=== PATIENT | female | born 1990 | race Caucasian/White ===

== ENCOUNTER 2016-12-19 08:51 | Outpatient (CLI) | payer MEDICAID | END 2016-12-19 08:52 | disposition EMS.NT | LOC: EMS 08:51 | PROVIDERS: ATTEND Surgery | DX: M25.512 Pain in left shoulder (principal); R07.81 Pleurodynia; M79.602 Pain in left arm; Y04.8XXA Assault by other bodily force, initial encounter ==

== ENCOUNTER 2017-01-22 01:55 | Emergency (ER) | payer SELFPAY ==
--- NOTE | 2017-01-22 02:21 | ED Physician Documentation ---
PD HPI ABD PAIN - Stated complaint Stated Complaint: ABDOMINAL PAIN - Chief complaint Chief Complaint: Abd Pain - History obtained from History obtained from: Patient - History of Present Illness Timing - onset: Enter time (22:30), Today Timing - details: Abrupt onset Pain level now: 9 Quality: Pain Location: LLQ Radiation: No: Chest, , Lower back, Left flank, Left shoulder, Right flank, Right shoulder, Upper back Improved by: Laying still Worsened by: Moving, Palpation Associated symptoms: Nausea, Vomiting. No: Fever Similar symptoms before: Has not had sx before Recently seen: Not recently seen - Additional information Additional information: patient complains of sudden onset of pelvic pain, predominantly left sided, immediately following intercourse. 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 - Present Medications Home Medications: Ambulatory Orders Medication Instructions Recorded Confirmed Ondansetron HCl [Zofran] 4 mg PO Q6HR PRN #14 tablet 01/22/17 oxyCODONE [Roxicodone] 5 mg PO Q6H PRN #14 tablet 01/22/17 - Allergies Allergies/Adverse Reactions: Allergies Allergy/AdvReac Type Severity Reaction Status Date / Time acetaminophen Allergy Edema Verified 03/31/16 19:00 - Social History Does the pt smoke?: Yes Smoking Status: Current every day smoker Does the pt drink ETOH?: Yes Does the pt have substance abuse?: No - Immunizations Immunizations are current?: Yes - POLST Patient has POLST: No PD ED PE NORMAL - Vitals Vital signs reviewed: Yes - General General: Alert and oriented X 3, No acute distress, Well developed/nourished - Cardiac Cardiac: RRR, No murmur - Respiratory Respiratory: No respiratory distress, Clear bilaterally - Abdomen Abdomen: Soft, Non tender, Non distended - Back Back: No CVA TTP Results - Vitals Vitals: Vital Signs - 24 hr 01/22/17 01/22/17 02:12 04:02 Temperature 36.8 C Heart Rate 90 87 Respiratory 20 18 Rate Blood Pressure 105/80 110/61 O2 Saturation 98 100 Oxygen O2 Source Room air - Labs Labs: Laboratory Tests 01/22/17 01/22/17 01/22/17 02:12 02:12 02:40 WBC 6.2 RBC 4.62 Hgb 14.0 Hct 40.6 MCV 87.7 MCH 30.2 MCHC 34.4 RDW 12.8 Plt Count 326 MPV 7.1 L Neut # 2.5 Lymph # 2.3 [place] # 0.9 Eos # 0.4 Baso # 0.0 Absolute Nucleated RBC 0.00 Nucleated RBCs 0.0 Sodium Potassium Chloride Carbon Dioxide Anion Gap BUN Creatinine Estimated GFR (MDRD) Glucose Calcium Total Bilirubin AST ALT Alkaline Phosphatase Total Protein Albumin Globulin Albumin/Globulin Ratio Lipase Urine Color YELLOW Urine Clarity CLEAR Urine pH 6.5 Ur Specific [place] 1.020 1.020 Urine Protein NEGATIVE Urine Glucose (UA) NEGATIVE Urine Ketones TRACE Urine Occult Blood NEGATIVE Urine Nitrite NEGATIVE Urine Bilirubin NEGATIVE Urine Urobilinogen 0.2 (NORMAL) Ur Leukocyte Esterase NEGATIVE Ur Microscopic Review NOT INDICATED Urine Culture Comments NOT INDICATED Urine HCG, Qual NEGATIVE 01/22/17 02:40 WBC RBC Hgb Hct MCV MCH MCHC RDW Plt Count MPV Neut # Lymph # [place] # Eos # Baso # Absolute Nucleated RBC Nucleated RBCs Sodium 138 Potassium 3.3 L Chloride 97 L Carbon Dioxide 31 Anion Gap 10.0 BUN 10 Creatinine 0.5 Estimated GFR (MDRD) 147 Glucose 111 H Calcium 9.4 Total Bilirubin 0.8 AST 33 ALT 44 Alkaline Phosphatase 51 Total Protein 7.2 Albumin 3.9 Globulin 3.3 Albumin/Globulin Ratio 1.2 Lipase 22 Urine Color Urine Clarity Urine pH Ur Specific [place] Urine Protein Urine Glucose (UA) Urine Ketones Urine Occult Blood Urine Nitrite Urine Bilirubin Urine Urobilinogen Ur Leukocyte Esterase Ur Microscopic Review Urine Culture Comments Urine HCG, Qual PD MEDICAL DECISION MAKING - ED course Complexity details: reviewed results, re-evaluated patient, considered differential, d/w patient Departure - Departure Disposition: 01 Home, Self Care Clinical Impression: Pelvic pain Condition: Good Instructions: ED Pelvic Pain [facility] Follow-Up: Marika English ARNP [Primary Care Provider] - Prescriptions: Ondansetron HCl [Zofran] 4 mg PO Q6HR PRN #14 tablet PRN Reason: Nausea / Vomiting oxyCODONE [Roxicodone] 5 mg PO Q6H PRN #14 tablet PRN Reason: Pain Discharge Date/Time: 01/22/17 04:11
[2017-01-22] MEDS ORDERED: HYDROmorphone 1 MG/ML SYRINGE IVP STA (02:30)
[2017-01-22] MEDS ORDERED: SODIUM CHLORIDE 0.9% 1,000 ML IV STA (02:30)
[2017-01-22] MEDS ORDERED: ONDANSETRON 4 MG/2 ML VIAL IVP STA (02:30)
[2017-01-22] MEDS ORDERED: HYDROmorphone 1 MG/ML SYRINGE ONE (02:31)
[2017-01-22] MEDS ORDERED: ONDANSETRON 4 MG/2 ML VIAL ONE (02:31)
[2017-01-22 02:40] LABS: BILIRUBIN,URINE NEGATIVE (NEGATIVE); PH,URINE 6.5 PH (5.0-7.5)
[2017-01-22 02:45] LABS: UA CHARGE (STRIP ONLY) YES; UR CULTURE IF IND NOT INDICATED
[2017-01-22 02:46] LABS: HCG UR QUAL NEGATIVE
[2017-01-22 03:25] LABS: BASOPHILS % (AUTO) 0.6 %; EOSINOPHILS # (AUTO) 0.4 10^3/uL (0.0-0.7); EOSINOPHILS % (AUTO) 6.8 %; HCT - HEMATOCRIT 40.6 % (37.0-47.0); LYMPHOCYTES # (AUTO) 2.3 10^3/uL (1.5-3.5); LYMPHOCYTES % (AUTO) 37.6 %; MEAN CORPUSCULAR HEMOGLOBIN 30.2 pg (27.0-31.0); MEAN CORPUSCULAR HGB CONC 34.4 g/dL (32.0-36.0); MEAN CORPUSCULAR VOLUME 87.7 fL (81.0-99.0); MEAN PLATELET VOLUME 7.1 fL (7.9-10.8); MONOCYTES # (AUTO) 0.9 10^3/uL (0.0-1.0); MONOCYTES % (AUTO) 13.9 %; NEUTROPHILS # (AUTO) 2.5 10^3/uL (1.5-6.6); NEUTROPHILS % (AUTO) 41.1 %; RED BLOOD COUNT 4.62 10^6/uL (4.20-5.40); RED CELL DISTRIBUTION WIDTH 12.8 % (12.0-15.0); UNCORRECTED WHITE BLOOD COUNT 6.2 x10^3/uL; WHITE BLOOD COUNT 6.2 x10^3/uL (4.8-10.8)
[2017-01-22 03:38] LABS: ALBUMIN/GLOBULIN RATIO 1.2 (1.0-2.2); BILIRUBIN,TOTAL 0.8 mg/dL (0.2-1.0); CALCIUM 9.4 mg/dL (8.5-10.3); CREATININE 0.5 mg/dL (0.4-1.0); POTASSIUM 3.3 mmol/L (3.5-5.0); TOTAL PROTEIN 7.2 g/dL (6.7-8.2)
--- NOTE | 2017-01-22 03:46 | Ultrasound Preliminary Report ---
Exam: US Pelvic Non OB w/Doppler Ltd IMPRESSION: Normal pelvic ultrasound. [facility] SITE ID: [id number]
--- NOTE | 2017-01-22 03:49 | Ultrasound Report ---
EXAM: PELVIC ULTRASOUND EXAM DATE: 01/22/2017 03:31 AM. CLINICAL HISTORY: Left pelvic pain. COMPARISON: None. TECHNIQUE: Realtime transabdominal pelvic scan performed to identify the uterus and adnexa and as an overview of other pelvic structures, followed by transvaginal scan to provide greater detail of the u terus and adnexa, with static image documentation. Pulsed Doppler and color Doppler performed. FINDINGS: Uterus: 6.8 x 4.4 x 5.0 cm, volume 79 cc. Anteverted position. Normal overall size and echotexture. Masses: None. Endometrium: 6 mm. Normal. Cervix: Unremarkable. Right Ovary: 3.6 x 1.8 x 3.5 cm, volume 11.8 cc. Normal echotexture and blood flow. Left Ovary: 3.8 x 2.2 x 2.6 cm, volume 11.3 cc. Normal echotexture and blood flow. Free Fluid: None. Other: None. IMPRESSION: Normal pelvic ultrasound. [facility] Referring Provider Line: [phone] SITE ID: [id number]
[2017-01-22 04:03] VITALS: BP 110/61
[2017-01-22] MEDS ORDERED: oxyCODONE 5 MG TABLET PO STA (04:05)
== END 2017-01-22 04:11 | disposition home or self-care (01) ==
LOC: ED 01:55
DX: R10.2 Pelvic and perineal pain (principal); R11.2 Nausea with vomiting, unspecified; F17.200 Nicotine dependence, unspecified, uncomplicated
CPT/HCPCS: 36415; 76856; 80053; 81003; 81025; 83690; 85025; 93976; 96374; 96375; 99283; 99284; J1170; 81001; 87086

== ENCOUNTER 2017-01-23 13:48 | Outpatient (CLI) | payer SELFPAY | END 2017-01-23 13:49 | disposition EMS.NT | LOC: EMS 13:48 | PROVIDERS: ATTEND Surgery | DX: R56.9 Unspecified convulsions (principal) ==

== ENCOUNTER 2017-07-27 06:57 | Emergency (ER) | payer OTHER ==
[2017-07-27] MEDS ORDERED: cloNIDine 0.1 MG TABLET PO STA (08:11)
[2017-07-27] MEDS ORDERED: ONDANSETRON ODT 4 MG TABLET TL STA (08:11)
[2017-07-27] MEDS ORDERED: DEXAMETHASONE 10 MG/ML VIAL PO STA (08:11)
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
[2017-07-27] MEDS ORDERED: ONDANSETRON ODT 4 MG TABLET ONE (08:21)
[2017-07-27] MEDS ORDERED: DEXAMETHASONE 10 MG/ML VIAL ONE (08:21)
[2017-07-27] MEDS ORDERED: cloNIDine 0.1 MG TABLET ONE (08:22)
--- NOTE | 2017-07-27 08:59 | CT Preliminary Report ---
Exam: CT HEAD W/O IMPRESSION: 1. Negative noncontrast CT scan of the head. No acute abnormality. [facility] SITE ID: [id number]
--- NOTE | 2017-07-27 09:01 | CT Report ---
EXAM: CT HEAD EXAM DATE: 07/27/2017 08:35 AM. CLINICAL HISTORY: L parietal contusion memory loss. Headache. COMPARISON: CT scan of the head 03/31/2016. TECHNIQUE: Multiaxial CT images were obtained from the foramen magnum to the vertex. Reformats: Coron al. IV contrast: None. In accordance with CT protocol optimization, one or more of the following dose reduction techniques w ere utilized for this exam: automated exposure control, adjustment of mA and/or KV based on patient s ize, or use of iterative reconstructive technique. FINDINGS: Parenchyma: No intraparenchymal hemorrhage. No evidence of mass, midline shift, or CT findings of inf arction. Carson-white differentiation is distinct. Extraaxial Spaces: Normal for age. No subdural or epidural collections identified. Ventricles: Normal in size and position. Sinuses and Orbits: Imaged paranasal sinuses, orbits, and mastoids show no significant abnormality. Bones: No evidence of fracture or calvarial defect. Other: None. IMPRESSION: 1. Negative noncontrast CT scan of the head. No acute abnormality. [facility] Referring Provider Line: [phone] SITE ID: [id number]
[2017-07-27 10:01] VITALS: BP 102/69
== END 2017-07-27 10:01 | disposition home or self-care (01) ==
LOC: ED 06:57
DX: F11.23 Opioid dependence with withdrawal (principal); S06.0X9A Concussion with loss of consciousness of unspecified duration, initial encounter; X58.XXXA Exposure to other specified factors, initial encounter; H66.003 Acute suppurative otitis media without spontaneous rupture of ear drum, bilateral; F17.200 Nicotine dependence, unspecified, uncomplicated
CPT/HCPCS: 70450; 99283; 99284; A9270; Q0162

== ENCOUNTER → 2018-02-04 | Outpatient (CLI) | payer OTHER | LOC: EDBD → LAB.R 08:00 → MERGE 19:33 | PROVIDERS: ATTEND Emergency Medicine | DX: N89.8 Other specified noninflammatory disorders of vagina (principal) | CPT/HCPCS: 81599; 87070; 87491; 87591 ==

== ENCOUNTER 2018-02-15 08:05 | Outpatient (CLI) | payer OTHER ==
[2018-02-18 16:16] LABS: HIV AG/AB 4TH GEN NON-REACTIVE (NON-REACTIVE)
== END 2018-02-15 08:06 | disposition home or self-care (01) ==
LOC: LAB.R 08:05
PROVIDERS: ATTEND Emergency Medicine
DX: Z20.6 Contact with and (suspected) exposure to human immunodeficiency virus [HIV] (principal)
CPT/HCPCS: 87389

== ENCOUNTER 2019-01-18 06:43 | Emergency (ER) | payer OTHER ==
[2019-01-18 06:58] VITALS: BP 100/74
--- NOTE | 2019-01-18 07:07 | ED Physician Documentation ---
History of Present Illness - Stated complaint Stated Complaint: FIT FOR CONFINMENT - Chief complaint Chief Complaint: General - History obtained from History obtained from: Patient, Police - History of Present Illness Timing: Today Pain level max: 1 Pain level now: 1 - Additonal information Additional information: 28-year-old female presents to the emergency department stating that she feels a foreign body sensation in the left eye. She states that she was cleaning a [employer] garage yesterday. Does not wear contacts. No trauma. 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 - Present Medications Home Medications: Ambulatory Orders Medication Instructions Recorded Confirmed Ondansetron HCl [Zofran] 4 mg PO Q6HR PRN #14 tablet 01/22/17 oxyCODONE [Roxicodone] 5 mg PO Q6H PRN #14 tablet 01/22/17 Azithromycin [Zithromax] 250 mg PO DAILY #6 tablet 07/27/17 Ondansetron Odt [Zofran] 4 mg TL Q6H PRN #10 tablet 07/27/17 cloNIDine [Catapres] 0.1 mg PO BID #14 tablet 07/27/17 Polymyxin B/Trimeth Ophth Drop 1 drops LEFTEYE Q3H 7 Days #1 01/18/19 [Polytrim Ophth Drops] bottle - Allergies Allergies/Adverse Reactions: Allergies Allergy/AdvReac Type Severity Reaction Status Date / Time acetaminophen Allergy Edema Verified 01/18/19 06:58 - Social History Does the pt smoke?: Yes Smoking Status: Current every day smoker Does the pt drink ETOH?: Yes Does the pt have substance abuse?: No - Immunizations Immunizations are current?: Yes - POLST Patient has POLST: No PD ED PE NORMAL - Vitals Vital signs reviewed: Yes - General General: Alert and oriented X 3, No acute distress - HEENT HEENT: Moist mucous membranes, Other (Conjunctival injection and tearing to the left eye. No foreign body visible. Eyelids everted. Mild fluorescein uptake along the superior aspect of the cornea.) - Neck Neck: Supple, no meningeal sign - Derm Derm: Warm and dry - Neuro Neuro: Alert and oriented X 3 Results - Vitals Vitals: Vital Signs - 24 hr 01/18/19 06:54 Temperature 37.0 C Heart Rate 106 H Respiratory 16 Rate Blood Pressure 100/74 O2 Saturation 98 Oxygen O2 Source Room air PD MEDICAL DECISION MAKING - ED course Complexity details: re-evaluated patient, considered differential, d/w patient ED course: Attempted to call [employer] [employer]SPORT[employer] OFFIC[employer] at the group home. straight to voicemail. not secure. HIPAA info not left as unsecure voicemail with no identifying information. Patient with a left eye corneal abrasion. No evidence of foreign body. I was irrigated in the emergency department. Will place on Polytrim ophthalmic and follow-up with ophthalmology. Patient counseled regarding signs and symptoms for which I believe and urgent re-evaluation would be necessary. Patient with good understanding of and agreement to plan and is comfortable going home at this time This document was made in part using voice recognition software. While efforts are made to proofread this document, sound alike and grammatical errors may occur. Departure - Departure Disposition: 01 Home, Self Care Clinical Impression: Corneal abrasion, left Qualifiers: Encounter type: initial encounter Qualified Code(s): S05.02XA - Injury of conjunctiva and corneal abrasion without foreign body, left eye, initial encounter Condition: Good Instructions: ED Eye Injury Corneal Abrasion Follow-Up: Gabino Rasmussen MD [Provider Admit Priv/Credential] - (if not improved in 2 days) Prescriptions: Polymyxin B/Trimeth Ophth Drop [Polytrim Ophth Drops] 1 drops LEFTEYE Q3H 7 Days #1 bottle Comments: Use the eyedrops as prescribed. Follow-up with Dr. Rasmussen on Sunday if not improved. Return if you worsen.
== END 2019-01-18 07:53 | disposition home or self-care (01) ==
LOC: ED 06:45
DX: S05.02XA Injury of conjunctiva and corneal abrasion without foreign body, left eye, initial encounter (principal); X58.XXXA Exposure to other specified factors, initial encounter; Y93.E9 Activity, other interior property and clothing maintenance; F17.200 Nicotine dependence, unspecified, uncomplicated
CPT/HCPCS: 99283

== ENCOUNTER 2019-08-28 22:35 | Emergency (ER) | payer MEDICAID, OTHER ==
--- NOTE | 2019-08-29 00:29 | ED Physician Documentation ---
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 - Present Medications Home Medications: Ambulatory Orders Medication Instructions Recorded Confirmed Ondansetron HCl [Zofran] 4 mg PO Q6HR PRN #14 tablet 01/22/17 oxyCODONE [Roxicodone] 5 mg PO Q6H PRN #14 tablet 01/22/17 Azithromycin [Zithromax] 250 mg PO DAILY #6 tablet 07/27/17 Ondansetron Odt [Zofran] 4 mg TL Q6H PRN #10 tablet 07/27/17 cloNIDine [Catapres] 0.1 mg PO BID #14 tablet 07/27/17 Polymyxin B/Trimeth Ophth Drop 1 drops LEFTEYE Q3H 7 Days #1 01/18/19 [Polytrim Ophth Drops] bottle - Allergies Allergies/Adverse Reactions: Allergies Allergy/AdvReac Type Severity Reaction Status Date / Time acetaminophen Allergy Edema Verified 01/18/19 06:58 - Social History Does the pt smoke?: Yes Smoking Status: Current every day smoker Does the pt drink ETOH?: Yes Does the pt have substance abuse?: No - Immunizations Immunizations are current?: Yes - POLST Patient has POLST: No Results - Vitals Vitals: Oxygen O2 Source Room air Departure - Departure Disposition: Home, Self Care Clinical Impression: Normal exam, Medical clearance for incarceration Condition: Good Discharge Date/Time: 08/28/19 22:50
== END 2019-08-28 22:50 | disposition home or self-care (01) ==
LOC: ED 22:35
DX: Z02.89 Encounter for other administrative examinations (principal); F17.200 Nicotine dependence, unspecified, uncomplicated
CPT/HCPCS: 99281

== ENCOUNTER 2023-08-09 13:07 | Outpatient (CLI) | payer MEDICAID ==
[2023-08-09 14:52] LABS: BASOPHILS % (AUTO) 0.5 %; EOSINOPHILS % (AUTO) 3.3 %; HCT - HEMATOCRIT 39.2 % (37.0-47.0); HGB - HEMOGLOBIN 12.8 g/dL (12.0-16.0); LYMPHOCYTES % (AUTO) 38.8 %; MEAN CORPUSCULAR HEMOGLOBIN 29.4 pg (27.0-31.0); MEAN CORPUSCULAR HGB CONC 32.7 g/dL (32.0-36.0); MEAN CORPUSCULAR VOLUME 89.9 fL (81.0-99.0); MEAN PLATELET VOLUME 9.1 fL (7.9-10.8); MONOCYTES % (AUTO) 17.4 %; NEUTROPHILS % (AUTO) 39.9 %; PLT - PLATELET COUNT 301 10^3/uL (130-450); RED BLOOD COUNT 4.36 10^6/uL (4.20-5.40); RED CELL DISTRIBUTION WIDTH 12.8 % (12.0-15.0); WHITE BLOOD COUNT 9.2 x10^3/uL (4.8-10.8)
[2023-08-09 14:55] LABS: ABNORMAL LYMPHS % (MANUAL) 0 %
[2023-08-09 15:03] LABS: CALCIUM 9.8 mg/dL (8.5-10.3); CREATININE 0.6 mg/dL (0.6-1.3); CRP - C-REACTIVE PROTEIN 2.2 mg/dL (<0.5); POTASSIUM 4.2 mmol/L (3.5-4.5); URIC ACID 3.3 mg/dL (2.3-6.6)
[2023-08-09 15:33] LABS: BAND NEUTROPHILS % (MANUAL) 1 %; BASOPHILS # (MANUAL) 0.1 10^3/uL (0-0.1); BASOPHILS % (MANUAL) 1 %; DIFFERENTIAL COMMENT MANUAL DIFFERENTIAL; EOSINOPHILS # (MANUAL) 0.3 10^3/uL (0-0.7); LYMPHOCYTES # (MANUAL) 3.7 10^3/uL (1.5-3.5); LYMPHOCYTES % (MANUAL) 23 %; MONOCYTES # (MANUAL) 1.4 10^3/uL (0.0-1.0); NEUTROPHILS # (MANUAL) 3.8 10^3/uL (1.5-6.6); PLATELET ESTIMATE, MANUAL NORMAL (130-450,000) (NORMAL); PLATELET MORPHOLOGY NORMAL APPEARANCE (NORMAL); RBC MORPHOLOGY (MULTIPLE) NPN (NORMAL); REACTIVE LYMPHS % (MANUAL) 17 %
--- NOTE | 2023-08-09 15:45 | XRAY Report ---
PROCEDURE: Ankle 3+V LT INDICATIONS: LEFT ANKLE PAIN TECHNIQUE: 3 views of the ankle were acquired. COMPARISON: None. FINDINGS: Bones: No definite fractures or dislocations. Ankle mortise is normally aligned. No suspicious bon y lesions. Soft tissues: Small tibiotalar joint effusion. Moderate soft tissue swelling surrounding the medial and lateral malleolus. Achilles tendon appears normal. IMPRESSION: Moderate soft tissue swelling of the left ankle without underlying fracture or dislocation. No defini te fracture seen involving the base of the left fifth metatarsal. There is point tenderness in this r egion, recommend dedicated radiographic evaluation of the left foot. Reviewed by: Jeff Patino MD on 08/09/2023 3:44 PM PST Approved by: Jeff Patino MD on 08/09/2023 3:44 PM PST Station ID: [id number]
== END 2023-08-09 13:08 | disposition home or self-care (01) ==
LOC: DI.S 13:07
PROVIDERS: ATTEND Physician Assistant Medical
DX: M25.572 Pain in left ankle and joints of left foot (principal); R22.42 Localized swelling, mass and lump, left lower limb
CPT/HCPCS: 36415; 80048; 84550; 85025; 86140